=== PATIENT | male | born 1970 | race American Indian/Alaskan Native ===

== ENCOUNTER 2016-08-19 19:08 | Emergency (ER) | payer SELFPAY ==
[2016-08-19 19:55] VITALS: BMI 33.6
[2016-08-19 19:59] VITALS: BP 148/95; PULSE 86; RESP 18; TEMP 98.4; O2SAT 99
--- NOTE | 2016-08-19 20:43 | ED PDOC ---
Arrival/HPI - General Chief Complaint: Medical Clearance Time Seen by Provider: 08/19/16 20:02 Historian: Patient - History of Present Illness Narrative History of Present Illness (Text): 08/19/16 20:40 46-year-old male presents today for treatment for STD. Patient states his girlfriend told him that she was diagnosed with Trichomonas and he needed to take medications. Patient denies testicular pain. Denies penile discharge. No abdominal pain. No urinary symptoms. No nausea or vomiting. Patient states his partner is asymptomatic at the time of diagnosis as well. Past Medical History - Provider Review Nursing Documentation Reviewed: Yes - Travel History Have you recently traveled outside [place] w/in the past 3 mons?: No - Infectious Disease Hx of Infectious Diseases: None - Tetanus Immunization Tetanus Immunization: Unknown - Psychiatric Hx Substance Use: No - Anesthesia Hx Anesthesia: No Hx Anesthesia Reactions: No Hx Malignant Hyperthermia: No Family/Social History - Physician Review Nursing Documentation Reviewed: Yes Family/Social History: Unknown Family HX Smoking Status: Current Some Days Smoker Hx Alcohol Use: Yes Hx Substance Use: No Allergies/Home Meds Allergies/Adverse Reactions: Allergies Penicillins Allergy (Unknown, Verified 08/19/16 19:59) ANAPHYLAXIS Review of Systems - Review of Systems Constitutional: absent: Fatigue, Fevers Respiratory: absent: SOB, Cough Cardiovascular: absent: Chest Pain, Palpitations Gastrointestinal: absent: Abdominal Pain, Constipation, Diarrhea, Nausea, Vomiting Genitourinary Male: Other (No testicular pain or discharge). absent: Dysuria, Frequency, Hematuria, Urinary Output Changes Musculoskeletal: absent: Arthralgias, Back Pain, Neck Pain Skin: absent: Rash, Pruritis Neurological: absent: Headache, Dizziness Physical Exam Vital Signs Reviewed: Yes Vital Signs Temp Pulse Resp BP Pulse Ox 08/19/16 19:55 98.4 F 86 18 148/95 H 99 Temperature: Afebrile Blood Pressure: Hypertensive Pulse: Regular Respiratory Rate: Normal Appearance: Positive for: Well-Appearing, Non-Toxic, Comfortable Pain Distress: None Mental Status: Positive for: Alert and Oriented X 3 - Systems Exam Head: Present: Atraumatic Mouth: Present: Moist Mucous Membranes Neck: Present: Normal Range of Motion Respiratory/Chest: Present: Clear to Auscultation, Good Air Exchange. No: Respiratory Distress, Accessory Muscle Use Cardiovascular: Present: Regular Rate and Rhythm, Normal S1, S2. No: Murmurs Abdomen: No: Tenderness Back: No: CVA Tenderness Skin: Present: Warm, Dry, Normal Color. No: Rashes Psychiatric: Present: Alert, Oriented x 3 Medical Decision Making ED Course and Treatment: 08/19/16 20:41 46-year-old male presents for treatment of Trichomonas as his partner was diagnosed with Trichomonas. 2 g of Flagyl given by mouth Patient states his partner was diagnosed with gonorrhea or chlamydia but I will send gonorrhea and Chlamydia cultures. Results need to be followed up and if positive the patient will need to be treated. I've advised follow-up with primary care physician within the next 2 days. I've advised refrain from alcohol for the next 48 hours after taking this medication. I've advised safe sex practices for the next 10 days. Patient verbalizes understanding of discharge instructions and need for immediate followup. all aspects of this case were discussed the attending of record. Impression: Exposure to Trichomonas Follow-up with primary care physician within the next 2 days Follow-up with your urine results within the next 5 days Return immediately if symptoms worsen or persist or if new concerning symptoms develop - Medication Orders Current Medication Orders: Discontinued Medications Metronidazole (Flagyl) 2,000 mg PO STAT STA PRN Reason: Protocol Stop: 08/19/16 20:39 Disposition/Present on Arrival - Present on Arrival Any Indicators Present on Arrival: No History of DVT/PE: No History of Uncontrolled Diabetes: No Urinary Catheter: No History of Decub. Ulcer: No History Surgical Site Infection Following: None - Disposition Have Diagnosis and Disposition been Completed?: Yes Diagnosis: STD exposure Disposition: HOME/ ROUTINE Disposition Time: 20:44 Patient Plan: Discharge Condition: GOOD Discharge Instructions (ExitCare): Trichomoniasis (ED) Additional Instructions: Follow-up with primary care physician within the next 2 days Follow-up with your urine results within the next 5 days Return immediately if symptoms worsen or persist or if new concerning symptoms develop Referrals: Santiago Arriaga MD [Staff Provider] - Follow up with primary [facility] [Outside] - Follow up with primary
== END 2016-08-19 21:00 | disposition home or self-care (01) ==
LOC: ED 19:08
DX: Z20.2 Contact with and (suspected) exposure to infections with a predominantly sexual mode of transmission (principal)